=== PATIENT | male | born 1970 | race Caucasian/White ===

== ENCOUNTER 2023-07-14 13:32 | Emergency (ER) | payer MEDICAID, OTHER ==
[~2023-07-14] VITALS: Ht 175.3 cm; Wt 113.4 kg
[2023-07-14] MEDS ORDERED: TRAZ-252 (13:46)
[2023-07-14] MEDS ORDERED: POTA-151 (13:46)
[2023-07-14] MEDS ORDERED: LISI20TA33 (13:46)
[2023-07-14] MEDS ORDERED: CHLO125TA (13:46)
[2023-07-14] MEDS ORDERED: ATEN50TA2 (13:46)
[2023-07-14] MEDS ORDERED: NYST-13 TOP (14:53)
[2023-07-14 15:35] VITALS: BP 130/70; TEMP 98.3; O2SAT 95
== END 2023-07-14 15:37 | disposition home or self-care (01) ==
LOC: M ED 14:14
DX: L30.4 Erythema intertrigo (principal); I10 Essential (primary) hypertension; F41.9 Anxiety disorder, unspecified; F32.A Depression, unspecified; F17.210 Nicotine dependence, cigarettes, uncomplicated; Z79.899 Other long term (current) drug therapy

== ENCOUNTER 2023-11-05 10:58 | Emergency (ER) | payer OTHER ==
[~2023-11-05] VITALS: Ht 175.3 cm; Wt 113.7 kg
[~2023-11-05 10:58] MED LIST: ATEN50TA2; CHLO125TA; LISI20TA33; NYST-13 TOP; POTA-151; TRAZ-252
[2023-11-05] MEDS: RABIES VACCINE HUMAN 2.5 INTERNATIONAL UNITS/ML VIAL IM ONE (14:05)
[2023-11-05] MEDS: RABIES IMMUNE GLOBULIN 1500 INTERNATIONAL UNIT/5ML VIAL IM.IMMUN ONE (14:06)
[2023-11-05 14:29] VITALS: BP 142/73; TEMP 98.8; O2SAT 99
== END 2023-11-05 14:30 | disposition home or self-care (01) ==
LOC: M ED 10:58
DX: Z20.3 Contact with and (suspected) exposure to rabies (principal); I10 Essential (primary) hypertension; F41.9 Anxiety disorder, unspecified

== ENCOUNTER 2023-11-08 08:19 | Emergency (ER) | payer OTHER ==
[~2023-11-08] VITALS: Ht 175.3 cm; Wt 114.8 kg
[2023-11-08 08:20] VITALS: BP 108/58; TEMP 97.5; O2SAT 97
[2023-11-08] MEDS: RABIES VACCINE HUMAN 2.5 INTERNATIONAL UNITS/ML VIAL IM ONE (10:39)
== END 2023-11-08 10:59 | disposition home or self-care (01) ==
LOC: M ED 08:19
DX: Z29.14 Encounter for prophylactic rabies immune globulin (principal); Z23 Encounter for immunization; I10 Essential (primary) hypertension; F17.210 Nicotine dependence, cigarettes, uncomplicated; F12.10 Cannabis abuse, uncomplicated; F10.10 Alcohol abuse, uncomplicated; Z88.0 Allergy status to penicillin; Z79.899 Other long term (current) drug therapy

== ENCOUNTER 2023-11-15 10:49 | Emergency (ER) | payer OTHER ==
[~2023-11-15] VITALS: Ht 175.3 cm; Wt 114.4 kg
[2023-11-15 10:49] VITALS: BP 128/68; TEMP 98.4; O2SAT 97
[2023-11-15] MEDS ORDERED: PERM5CRE9 TOP (12:46)
[2023-11-15] MEDS: RABIES VACCINE HUMAN 2.5 INTERNATIONAL UNITS/ML VIAL IM ONE (13:03)
[2023-11-15] MEDS: PERMETHRIN 5% CREAM 60 GM TOP STA (13:08)
== END 2023-11-15 13:10 | disposition home or self-care (01) ==
LOC: M ED 10:49
DX: B86 Scabies (principal); Z29.14 Encounter for prophylactic rabies immune globulin; I10 Essential (primary) hypertension; E78.5 Hyperlipidemia, unspecified; F17.210 Nicotine dependence, cigarettes, uncomplicated; Z23 Encounter for immunization; Z88.0 Allergy status to penicillin; Z79.899 Other long term (current) drug therapy

== ENCOUNTER → 2023-11-18 | Outpatient (REF) | payer OTHER ==
[~2023-11-18] MED LIST changes: +PERM5CRE9 TOP
[2023-11-18 13:44] LABS: APPEARANCE, URINE HAZY (CLEAR); BACTERIA, URINE AUTO NEGATIVE (NEGATIVE); BILIRUBIN, URINE AUTO NEGATIVE (NEGATIVE); BLOOD, URINE BLOOD 1+ (NEGATIVE); COLOR, URINE YELLOW (YELLOW); GLUCOSE, URINE (UA) AUTO NEGATIVE (NEGATIVE); KETONE, URINE AUTO NEGATIVE (NEGATIVE); LEUKOCYTE ESTERASE, URINE AUTO NEGATIVE (NEGATIVE); MUCUS, URINE SMALL (NEGATIVE); NITRITE, URINE AUTO NEGATIVE (NEGATIVE); PROTEIN, URINE AUTO NEGATIVE (NEGATIVE); RBC, URINE AUTO 1 /HPF (0-3); SPECIFIC GRAVITY URINE AUTO 1.024 (1.002-1.035); SQUAMOUS EPITHELIAL CELL UR AU 6 /HPF (0-6); UROBILINOGEN, URINE AUTO 0.2 mg/dL (0.0-2.0); WBC, URINE AUTO 2 /HPF (0-3)
[2023-11-18 14:22] LABS: Trichomonas vaginalis (AMP) NOT DETECTED (NEGATIVE)
[2023-11-18 14:46] LABS: GC DNA AMPLIFICATION NEGATIVE (NEGATIVE)
== END ==
LOC: M LAB REF 12:19
PROVIDERS: ATTEND Physician Assistant
DX: Z11.3 Encounter for screening for infections with a predominantly sexual mode of transmission (principal)

== ENCOUNTER 2023-11-23 10:41 | Emergency (ER) | payer OTHER ==
[~2023-11-23] VITALS: Ht 175.3 cm; Wt 114.0 kg
[2023-11-23 10:42] VITALS: BP 135/64; TEMP 98.1; O2SAT 97
[2023-11-23] MEDS: RABIES VACCINE HUMAN 2.5 INTERNATIONAL UNITS/ML VIAL (IMOVAX) IM ONE (11:05)
== END 2023-11-23 11:21 | disposition home or self-care (01) ==
LOC: M ED 10:41
DX: Z29.14 Encounter for prophylactic rabies immune globulin (principal); Z23 Encounter for immunization; I10 Essential (primary) hypertension; E78.5 Hyperlipidemia, unspecified; F17.210 Nicotine dependence, cigarettes, uncomplicated; F10.10 Alcohol abuse, uncomplicated; F41.9 Anxiety disorder, unspecified; F32.A Depression, unspecified; Z88.0 Allergy status to penicillin; Z79.899 Other long term (current) drug therapy

== ENCOUNTER → 2024-10-04 | Outpatient (CLI) | payer OTHER ==
[~2024-10-04] MED LIST changes: -NYST-13 TOP; +NYST0.1C TOP
[2024-10-04 16:23] LABS: BASO % 0.4 % (0.0-1.0); EOS # 0.1 10^3/uL (0.0-0.5); EOS % 1.1 % (0.0-3.0); HEMATOCRIT 45.4 % (42.0-52.0); LYMPH # 2.1 10^3/uL (1.5-5.0); LYMPH % 23.5 % (24.0-44.0); MEAN CORPUSCULAR HEMOGLOBIN 31.8 pg (27.0-33.0); MEAN CORPUSCULAR HGB CONC 35.2 g/dl (32.0-36.5); MEAN CORPUSCULAR VOLUME 90.3 fl (80.0-96.0); MONO # 0.6 10^3/uL (0.0-0.8); MONO % 7.1 % (2.0-8.0); NEUTROPHILS # 6.1 10^3/uL (1.5-8.5); NEUTROPHILS % 67.6 % (36.0-66.0); PLATELET COUNT, AUTOMATED 210 10^3/uL (150-450); RED BLOOD COUNT 5.03 10^6/uL (4.30-6.10)
[2024-10-04 16:54] LABS: ALBUMIN 4.4 G/DL (3.2-5.2); BILIRUBIN,TOTAL 0.9 MG/DL (0.3-1.2); CALCIUM LEVEL 9.8 MG/DL (8.5-10.1); CHOLESTEROL RISK RATIO 3.92 (<5); CREATININE FOR GFR 1.35 MG/DL (0.70-1.30); GLOMERULAR FILTRATION RATE 62.4 (>56); HDL CHOLESTEROL 52.7 MG/DL (>40); LDL CHOLESTEROL 136.3 MG/DL (<100); NON-HDL-C 154.3 MG/DL; POTASSIUM SERUM 3.6 MMOL/L (3.5-5.1); TOTAL PROTEIN 7.1 G/DL (5.7-8.2)
== END ==
LOC: M PLALAB 13:30
PROVIDERS: ATTEND Nurse Practitioner Family
DX: I10 Essential (primary) hypertension (principal)

== ENCOUNTER → 2024-10-04 | Outpatient (CLI) | payer OTHER | LOC: M PLALAB 13:33 | PROVIDERS: ATTEND Physician Assistant | DX: Z12.5 Encounter for screening for malignant neoplasm of prostate (principal) ==

== ENCOUNTER → 2025-03-17 | Outpatient (CLI) | payer OTHER ==
[~2025-03-17] MED LIST changes: -PERM5CRE9 TOP; +PERM60CR2 TOP
[2025-03-17 13:56] LABS: BASO # 0.0 10^3/uL (0.0-0.2); BASO % 0.3 % (0.0-1.0); EOS # 0.0 10^3/uL (0.0-0.5); EOS % 0.5 % (0.0-3.0); LYMPH # 1.5 10^3/uL (1.5-5.0); LYMPH % 18.9 % (24.0-44.0); MONO # 0.6 10^3/uL (0.0-0.8); MONO % 7.6 % (2.0-8.0); NEUTROPHILS # 5.6 10^3/uL (1.5-8.5); NEUTROPHILS % 72.2 % (36.0-66.0); PLATELET COUNT, AUTOMATED 238 10^3/uL (150-450)
[2025-03-17 14:04] LABS: ALT/SGPT 25.0 U/L (7.0-40); AST/SGOT 21.0 U/L (<34); CALCIUM LEVEL 9.5 MG/DL (8.5-10.1); CARBON DIOXIDE LEVEL 28.0 MMOL/L (20-31); CHLORIDE LEVEL 101.0 MMOL/L (98-107); CHOLESTEROL LEVEL 193.0 MG/DL (<200); CHOLESTEROL RISK RATIO 2.96 (<5); CREATININE FOR GFR 1.28 MG/DL (0.70-1.30); GLOMERULAR FILTRATION RATE 66.5 (>56); LDL CHOLESTEROL 113.7 MG/DL (<100); NON-HDL-C 127.9 MG/DL; POTASSIUM SERUM 4.1 MMOL/L (3.5-5.1); SODIUM LEVEL 142.0 MMOL/L (136-145); TRIGLYCERIDES LEVEL 71.0 MG/DL (<150)
[2025-03-17 14:34] LABS: ESTIMATED AVERAGE GLUCOSE 108.0 MG/DL (60-110)
== END ==
LOC: M PLALAB 09:46
PROVIDERS: ATTEND Nurse Practitioner Family
DX: R73.01 Impaired fasting glucose (principal); I10 Essential (primary) hypertension